=== PATIENT | female | born 2000 | race African-American/Black ===

== ENCOUNTER 2022-01-22 06:10 | Inpatient (IN) ==
[2022-01-22] MEDS ORDERED: TRANEXAMIC ACID 1,000 MG in SODIUM CHLORIDE 0.9% 100 ML IV PRN (06:36)
[2022-01-22] MEDS ORDERED: MEPERIDINE 50 MG/1 ML VIAL IV PRN (06:36)
[2022-01-22] MEDS ORDERED: OXYTOCIN/LR 20 UNIT/1,000 ML BAG IV ONE (06:36)
[2022-01-22] MEDS ORDERED: CARBOPROST TROMETHAMINE 250 MCG/ML AMP IM PRN (06:36)
[2022-01-22] MEDS ORDERED: miSOPROStoL 200 MCG TABLET RECTAL PRN (06:36)
[2022-01-22] MEDS ORDERED: METHYLERGONOVINE 0.2 MG/1 ML AMP IM PRN (06:36)
[2022-01-22] MEDS ORDERED: ONDANSETRON 4 MG/2 ML VIAL IV PRN (06:36)
[2022-01-22] MEDS: LACTATED RINGERS 1,000 ML IV SCH ×2 (06:50→18:11)
[2022-01-22] MEDS: BETAMETH SODIUM PHOS/ACETATE 30 MG/5 ML VIAL IM SCH ×2 (07:04→18:50)
[2022-01-22] MEDS: CLINDAMYCIN INJ 900 MG/50 ML PREMIX IV SCH ×3 (07:04→23:19)
[2022-01-22 07:14] LABS: Basophils % 0.2 % (0.0-0.8); Eosinophils % 0.4 % (0.00-10.9); Hemoglobin 10.4 GM/DL (12.0-16.0); Immature Granulocytes % 1.5 %; Immature Granulocytes Absolute 0.15 #; Lymphocytes # 2.1 10*3/uL (1.4-4.0); Lymphocytes % 20.7 % (21.3-54.2); Mean Corpuscular HGB Conc 32.5 GM/DL (32-36); Mean Corpuscular Volume 93.8 FL (87-102); Mean Platelet Volume 10.3 FL (9.6-12.0); Monocytes % 10.1 % (1.7-12.7); Neutrophils % 67.1 % (38.7-73.9); Platelet Count 179 T/CUMM (130-400); Red Blood Count 3.41 MC/CUMM (3.8-5.5); Red Cell Distribution Width 13.8 % (9.3-17.3); White Blood Count 10.1 T/CUMM (4-12)
[2022-01-22 07:34] LABS: Albumin 2.3 G/DL (3.4-5.0); Bilirubin,Total 0.4 MG/DL (0.20-1.00); Calcium 8.7 MG/DL (8.5-10.1); Osmolality,Calculated 272.5 MOS/KG (273-304); Potassium 4.1 MMOL/L (3.5-5.1); Total Protein 6.5 G/DL (6.4-8.2); Uric Acid 2.7 MG/DL (2.6-6.0)
[2022-01-23] MEDS ORDERED: ePHEDrine 50 MG/ML VIAL IV PRN (04:47)
[2022-01-23] MEDS ORDERED: PROMETHAZINE 25 MG/1 ML VIAL IM ONE (04:47)
[2022-01-23] MEDS ORDERED: LACTATED RINGERS 500 ML IV PRN (04:47)
[2022-01-23] MEDS ORDERED: hydrOXYzine HCL 25 MG/1 ML VIAL IM PRN (04:47)
[2022-01-23] MEDS ORDERED: ONDANSETRON 4 MG/2 ML VIAL IV ONE (04:47)
[2022-01-23] MEDS ORDERED: NALOXONE 0.4 MG/ML VIAL IV PRN (04:47)
[2022-01-23] MEDS ORDERED: diphenhydrAMINE 50 MG/1 ML VIAL IV PRN ×2 (04:47)
[2022-01-23] MEDS ORDERED: FAMOTIDINE 20 MG/2 ML VIAL IV ONE (04:49)
[2022-01-23] MEDS ORDERED: CITRIC ACID/SODIUM CITRATE 30 ML UDCUP PO ONE (04:49)
[2022-01-23] MEDS ORDERED: TRANEXAMIC ACID 1,000 MG/10 ML VIAL ONE (04:58)
[2022-01-23] MEDS ORDERED: SODIUM CHLORIDE 0.9% 0 ML IV ONE (04:58)
[2022-01-23] MEDS ORDERED: miSOPROStoL 200 MCG TABLET ONE (04:58)
[2022-01-23] MEDS ORDERED: OXYTOCIN/LR 20 UNIT/1,000 ML BAG IV ONE ×2 (04:58→07:27)
[2022-01-23] MEDS ORDERED: CARBOPROST TROMETHAMINE 250 MCG/ML AMP IM ONE (04:58)
[2022-01-23] MEDS ORDERED: METHYLERGONOVINE 0.2 MG/1 ML AMP ONE (04:58)
[2022-01-23] MEDS ORDERED: fentaNYL 2 MCG/ROPIV 0.2% EPID 100 ML EPIDURAL SCH (05:00)
[2022-01-23] MEDS: LACTATED RINGERS 1,000 ML IV SCH (05:36)
[2022-01-23 06:20] LABS: Basophils % 0.1 % (0.0-0.8); Hematocrit 30.8 VOL% (35.7-47.0); Hemoglobin 10.2 GM/DL (12.0-16.0); Immature Granulocytes % 1.8 %; Immature Granulocytes Absolute 0.27 #; Lymphocytes # 1.2 10*3/uL (1.4-4.0); Lymphocytes % 8.1 % (21.3-54.2); Mean Corpuscular HGB Conc 33.1 GM/DL (32-36); Mean Corpuscular Volume 92.8 FL (87-102); Mean Platelet Volume 11.8 FL (9.6-12.0); Monocytes # 0.8 10*3/uL (0.11-0.8); Platelet Count 193 T/CUMM (130-400); Red Blood Count 3.32 MC/CUMM (3.8-5.5); Red Cell Distribution Width 13.7 % (9.3-17.3); White Blood Count 14.9 T/CUMM (4-12)
[2022-01-23 06:30] LABS: Bacteria,Urine Occasional /HPF (Few); Mucus,Urine Few /LPF (Occasional); Squamous Epithelial Cell,Urine Occasional /HPF (0-10)
[2022-01-23 06:31] LABS: Bilirubin,Urine Negative (Negative); Blood, Urine Trace mg/dL (Negative); Glucose,Urine (UA) Negative (Negative); Ketones,Urine >160 mg/dL (Negative); Nitrite,Urine Negative (Negative); Protein,Urine Negative (Negative); Urine Appearance Clear (Clear); Urine Color Yellow (Yellow); Urine Specific Gravity > 1.030 (1.001-1.035); Urine Urobilinogen 0.2 eU/dL (<2.0)
[2022-01-23] MEDS ORDERED: RHO(D) IMMUNE GLOBULIN 300 MCG SYRINGE IM ONE (07:27)
[2022-01-23] MEDS ORDERED: ONDANSETRON 4 MG/2 ML VIAL IV PRN (07:27)
[2022-01-23] MEDS ORDERED: WITCH HAZEL PADS 100/JAR TOP PRN (07:27)
[2022-01-23] MEDS ORDERED: BENZOCAINE 20%/MENTHOL 0.5% SPRAY 56 GM CAN TOP PRN (07:27)
[2022-01-23] MEDS ORDERED: ACETAMINOPHEN 325 MG TABLET PO PRN (07:27)
[2022-01-23] MEDS ORDERED: oxyCODONE/ACETAMINOPHEN 5-325 MG TABLET PO PRN (07:27)
[2022-01-23] MEDS ORDERED: BISACODYL 10 MG SUPP RECTAL PRN (07:27)
[2022-01-23] MEDS ORDERED: DIPH/TET/ACEL PERT BOOSTER VACCINE 0.5 ML VIAL IM ONE (07:27)
[2022-01-23] MEDS ORDERED: HYDROCORTISONE 2.5% RECTAL CREAM 30 GM TUBE TOP PRN (07:27)
[2022-01-23] MEDS ORDERED: MEASLES/MUMPS/RUBELLA VACCINE 0.5 ML VIAL SUBCUT ONE (07:27)
[2022-01-23] MEDS ORDERED: LANOLIN 50% CREAM 0.3 OZ TUBE TOP PRN (07:27)
[2022-01-23 07:43] LABS: Cord Venous Blood HCO3 22.8 MMOL/L; Cord Venous Blood PCO2 43.1 MMHG
[2022-01-23] MEDS: IBUPROFEN 800 MG TABLET PO PRN ×2 (10:49→19:25)
[2022-01-23] MEDS: DOCUSATE SODIUM 100 MG CAPSULE PO SCH (20:41)
[2022-01-23] MEDS: oxyCODONE/ACETAMINOPHEN 5-325 MG TABLET PO PRN (20:42)
[2022-01-24] MEDS ORDERED: BENZOCAINE/MENTHOL LOZENGE 18/BOX PO PRN (03:50)
[2022-01-24 05:30] LABS: Basophils % 0.1 % (0.0-0.8); Eosinophils % 0.2 % (0.00-10.9); Hematocrit 27.5 VOL% (35.7-47.0); Hemoglobin 9.2 GM/DL (12.0-16.0); Immature Granulocytes % 1.5 %; Immature Granulocytes Absolute 0.22 #; Lymphocytes % 20.6 % (21.3-54.2); Mean Corpuscular HGB Conc 33.5 GM/DL (32-36); Mean Corpuscular Volume 91.7 FL (87-102); Mean Platelet Volume 11.3 FL (9.6-12.0); Monocytes # 1.2 10*3/uL (0.11-0.8); Monocytes % 8.4 % (1.7-12.7); Neutrophils % 69.2 % (38.7-73.9); Platelet Count 185 T/CUMM (130-400); Red Cell Distribution Width 13.8 % (9.3-17.3); White Blood Count 14.3 T/CUMM (4-12)
[2022-01-24] MEDS: DOCUSATE SODIUM 100 MG CAPSULE PO SCH ×3 (07:45→20:39)
[2022-01-24] MEDS: oxyCODONE/ACETAMINOPHEN 5-325 MG TABLET PO PRN (11:54)
[2022-01-24] MEDS: IBUPROFEN 800 MG TABLET PO PRN (11:55)
[2022-01-25 09:15] VITALS: BP 104/81
[2022-01-25] MEDS: DOCUSATE SODIUM 100 MG CAPSULE PO SCH (09:52)
[2022-01-25] MEDS: IBUPROFEN 800 MG TABLET PO PRN (09:55)
== END 2022-01-25 12:45 | disposition home or self-care (01) | DRG 560 ==
LOC: N.LD 06:10 → N.OB 01-23 09:34
PROVIDERS: ADMIT Obstetrics & Gynecology; ATTEND Obstetrics & Gynecology